=== PATIENT | male | born 1940 | race Caucasian/White ===

== ENCOUNTER 2021-04-27 07:39 | Outpatient (CLI) | payer MEDICARE, MEDICAID, SELFPAY ==
--- NOTE | 2021-04-27 | ECHO_ITS ---
Patient Info Name: Jose Antonio Warren Age: 80 years : 1940 Gender: Male Ht: 69 in Wt: 192 lbs BSA: 2.08 m2 HR: 75 bpm BP: 153 / 89 mmHg Heart Rhythm: Atrial Fibrillation Technical Quality: Good Exam Date: 04/27/2021 7:55 AM Exam Location: [facility] Patient Status: Outpatient Admit Date: 04/27/2021 Staff Ordering Physician: Anisa, Sang Drummond MD Asphalt Engineer: Amberly Sutton RDCS Attending Provider: Anisa, Sang Drummond MD Referring Physician: Anisa MCBRIDE; Exam Type: CA echo doppler color flow Study Info Indications R01.1 - Cardiac murmur, unspecified Complete two-dimensional, color flow and Doppler transthoracic echocardiogram is performed. Summary 1. Complete two-dimensional, color flow and Doppler transthoracic echocardiogram is performed. 2. Left ventricular chamber dimension is normal. 3. Left ventricular systolic function is normal, estimated at 55-60%. 4. There is mildly increased left ventricular wall thickness. 5. The left ventricular diastolic function is abnormal. 6. E/e' 15 is elevated. 7. Atrial fibrillation. 8. Right ventricular systolic function is mildly reduced and with abnormal TAPSE 1.5 cm.. 9. Left atrial chamber dimension is severely enlarged. 10. 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 11. There is moderate aortic valve stenosis with a peak velocity of 246 cm/s, mean gradient of 11 mmHg, and aortic valve area of 1.2 cm2. 12. There is mild aortic valve regurgitation. 13. The mitral valve has mildly calcified annulus. 14. There is mild mitral valve regurgitation. 15. There is mild tricuspid valve regurgitation. 16. Mild pulmonary hypertension, estimated pulmonary arterial systolic pressure is 45 mmHg. 17. Small atheroma in anterior aortic root. Left Ventricle E/e' 15 is elevated. Atrial fibrillation. Left ventricular chamber dimension is normal. Left ventricular systolic function is normal, estimated at 55-60%. There is mildly increased left ventricular wall thickness. The left ventricular diastolic function is abnormal. Right Ventricle Right ventricular systolic function is mildly reduced and with abnormal TAPSE 1.5 cm.. Right ventricular chamber dimension is normal. Left Atria Left atrial chamber dimension is severely enlarged. Right Atria Right atrial chamber dimension is normal. Aortic Valve The aortic valve is trileaflet. 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 There is moderate aortic valve stenosis with a peak velocity of 246 cm/s, mean gradient of 11 mmHg, and aortic valve area of 1.2 cm2. There is mild aortic valve regurgitation. Pulmonic Valve There is no pulmonic regurgitation. Mitral Valve The mitral valve has mildly calcified annulus. There is no mitral valve stenosis. There is mild mitral valve regurgitation. Tricuspid Valve There is mild tricuspid valve regurgitation. Mild pulmonary hypertension, estimated pulmonary arterial systolic pressure is 45 mmHg. Pericardium/Pleural There is no pericardial effusion. Inferior Vena Cava Normal inferior vena cava with >50% collapse upon inspiration consistent with normal right atrial pressure, 5 mmHg. Aorta Small atheroma in anterior aortic root. The aortic root size at the sinus of Valsalva is normal. Left Ventricular Outflow Tract Name Value Normal
== END 2021-04-27 07:40 | disposition home or self-care (01) ==
LOC: ANHCARD 07:41
PROVIDERS: Visit Provider Internal Medicine
DX: R01.1 Cardiac murmur, unspecified (principal); I36.1 Nonrheumatic tricuspid (valve) insufficiency; I35.0 Nonrheumatic aortic (valve) stenosis
CPT/HCPCS: 93306